=== PATIENT | female | born 1970 | race Caucasian/White ===

== ENCOUNTER 2017-06-04 20:29 | Emergency (ER) | payer OTHER ==
[~2017-06-04] VITALS: Ht 167.6 cm; Wt 62.6 kg
[~2017-06-04 20:29] MED LIST: FAMO-63 PO
--- NOTE | 2017-06-04 21:49 | ED.ADGEN ---
Past History Past Medical History: Anxiety, Cancer, GERD, Hypertension, Other Additional Past Medical Histor: duodenal ulcer, H.Pylori Past Surgical History: Cancer Surgery, Alcohol Use: Occasionally Drug Use: None Adult General HPI HPI Patient is a 46 yo female with abscess x 2 days on right shoulder. no hx of MRSA. thinks it's a spider bite. no fever. no n/v/d Review of Systems Review of Systems Constitutional: Denies fever or chills [] Eyes: Denies change in visual acuity, redness, or eye pain [] HENT: Denies nasal congestion or sore throat [] Respiratory: Denies cough or shortness of breath [] Cardiovascular: No additional information not addressed in HPI [] GI: Denies abdominal pain, nausea, vomiting, bloody stools or diarrhea [] : Denies dysuria or hematuria [] Musculoskeletal: Denies back pain or joint pain [] Integument: lesion on right posterior shoulder Neurologic: Denies headache, focal weakness or sensory changes [] Endocrine: Denies polyuria or polydipsia [] All other systems were reviewed and found to be within normal limits, except as documented in this note. Allergies Allergies Allergies Coded Allergies Type Severity Reaction Last Updated Verified ampicillin Allergy Intermediate 10/30/15 Yes ciprofloxacin Allergy Intermediate gi 10/30/15 Yes metronidazole Allergy Intermediate breathing 10/30/15 Yes Penicillins Allergy Unknown breathing 10/30/15 Yes Physical Exam Physical Exam Constitutional: Well developed, well nourished, no acute distress, non-toxic appearance. [] HENT: Normocephalic, atraumatic, bilateral external ears normal, oropharynx moist, no oral exudates, nose normal. [] Eyes: PERRLA, EOMI, conjunctiva normal, no discharge. [] Neck: Normal range of motion, no tenderness, supple, no stridor. [] Cardiovascular:Heart rate regular rhythm, no murmur [] Lungs & Thorax: Bilateral breath sounds clear to auscultation [] Abdomen: Bowel sounds normal, soft, no tenderness, no masses, no pulsatile masses. [] Skin:2x2 inch erythematous area on posterior right shoulder. no drainage. 1mm black/yellow area on top. no fluctuant area. tender firm area in center is 1cm. Back: No tenderness, no CVA tenderness. [] Extremities: No tenderness, no cyanosis, no clubbing, ROM intact, no edema. [] Neurologic: Alert and oriented X 3, normal motor function, normal sensory function, no focal deficits noted. [] Psychologic: Affect normal, judgement normal, mood normal. [] Current Patient Data Vital Signs Vital Signs Date Time Temp Pulse Resp B/P (MAP) Pulse Ox O2 Delivery O2 Flow Rate FiO2 06/04/17 21:00 98.1 87 16 98 Room Air EKG EKG [] Radiology/Procedures Radiology/Procedures [] Course & Med Decision Making Course & Med Decision Making Pertinent Labs and Imaging studies reviewed. (See chart for details) pt wishes to do warm compresses and antibiotics. she will return if not improving for re-evaluation and potential I&D [] Final Impression Final Impression abscess[] Problems: Dragon Disclaimer Dragon Disclaimer This electronic medical record was generated, in whole or in part, using a voice recognition dictation system. Departure Time of Disposition: 21:50 Disposition: 01 HOME, SELF-CARE Condition: STABLE Patient Instructions: Abscess Additional Instructions: bactrim and keflex for infection. try do do warm compresses 4 times-a-day to express pus. do not try and open with pins, fingernails, or any sharp object. return if increase in size, pain, fever, or any other concerns Prescriptions bactrim, keflex, NEEMA DOMINGO MD Jun 04, 2017 21:49
[2017-06-04] MEDS ORDERED: CEPH-264 PO (21:52)
[2017-06-04] MEDS ORDERED: SULF1TAB24 PO (21:52)
[2017-06-04 21:55] VITALS: BP 156/86
== END 2017-06-04 21:59 | disposition home or self-care (01) ==
LOC: ER 20:29
DX: L02.413 Cutaneous abscess of right upper limb (principal); F41.9 Anxiety disorder, unspecified; K21.9 Gastro-esophageal reflux disease without esophagitis; I10 Essential (primary) hypertension; Z88.1 Allergy status to other antibiotic agents; Z88.0 Allergy status to penicillin; Z88.8 Allergy status to other drugs, medicaments and biological substances
CPT/HCPCS: 99283

== ENCOUNTER 2019-03-27 21:28 | Emergency (ER) | payer SELFPAY ==
[~2019-03-27] VITALS: Ht 167.6 cm; Wt 74.0 kg
[~2019-03-27 21:28] MED LIST changes: +CEPH-264 PO; +SULF1TAB24 PO
--- NOTE | 2019-03-27 21:38 | PHYS DOC ---
Past History Past Medical History: Anxiety, Cancer, Constipation, Depression, GERD, High Cholesterol, Hypertension, Other Additional Past Medical Histor: duodenal ulcer, H.Pylori Past Medical History PTSD Past Surgical History: Cancer Surgery, Smoking: Cigarettes Alcohol Use: Occasionally Drug Use: Marijuana, Methamphetamine Adult General Chief Complaint Chief Complaint: ABDOMINAL PAIN..." I have multiple worries.. and complaints.. I am worried I may be having a heart attack... and I got this bad abdomen pain.. here on the Lt. ...that been going on the past 2 to 3 weeks.. I went to [facility] 2 weeks ago.. they sent me to [facility].. and worked me up foa a stroke.. when my mouth swelled up from Lisionopril....but they did not do any for my chest pain or abdomen pain..." HPI HPI Patient is a 48 year old female who presents with above hx and complaints of abdomen pain, chest pain, and generalized malaise. Patient symptoms have been going on 2-3 weeks. Patient normally follows with Dr Rafita Luong. at [facility]. Patient does smoke tobacco, and occasional marijuana.. Patient does have a history of hypertension And elevated cholesterol. There is a family history of cardiac disease but presentation usually starts after age 50. Patient was admitted to [facility] for approximately 3 days for a workup-CVA with an MRI and carotid Dopplers. No significant surgical lesion found. Per patient. Patient did have angioedema with the use of lisinopril which started the CVA workup at [facility]. She denies any travel. Patient denies any history immunosuppression. Patient has had history of GERD., PTSD, anxiety disorder, endometriosis, and anxiety disorder. Patient denies any specific ill contacts. Patient did not get a flu vaccination this season. Patient has had history of multiple EGDs and previous diagnosis of H. pylori which required multiple episodes of antibiotic treatment before clearing. Patient denies any trauma. Patient is very anxious. No history of colon scopic evaluations. Denies history of renal colic or renal stones. Patient has had very poor intake the last several days. Reportedly has not been able to tolerate food. Because of nausea. Patient states she's gained weight from 148 lbs to 172 pounds in the past month. Review of Systems Review of Systems Constitutional: Denies fever or chills [] Eyes: Denies change in visual acuity, redness, or eye pain [] HENT: Denies nasal congestion or sore throat [] Respiratory: Denies cough or shortness of breath [] Cardiovascular: No additional information not addressed in HPI [] GI: Complaints of epigastric and left flank abdominal pain, nausea, vomiting,. Denies bloody stools or diarrhea [] : Denies dysuria or hematuria [] Musculoskeletal: Complains of left flank back pain. Denies joint pain [] Integument: Denies rash or skin lesions [] Neurologic: Denies headache, focal weakness or sensory changes [] Endocrine: Denies polyuria or polydipsia [] All other systems were reviewed and found to be within normal limits, except as documented in this note. Family History Family History Hypertension and cardiac issues late in 60s Current Medications Current Medications See nursing for home meds Allergies Allergies Allergies Coded Allergies Type Severity Reaction Last Updated Verified ampicillin Allergy Intermediate 10/30/15 Yes ciprofloxacin Allergy Intermediate gi 10/30/15 Yes metronidazole Allergy Intermediate breathing 10/30/15 Yes Penicillins Allergy Unknown breathing 10/30/15 Yes Physical Exam Physical Exam Constitutional: Moderate distress, non-toxic appearance. [] HENT: Normocephalic, atraumatic, bilateral external ears normal, oropharynx moist, no oral exudates, nose normal. [] Eyes: PERRLA, EOMI, conjunctiva normal, no discharge. [] Neck: Normal range of motion, no tenderness, supple, no stridor. [] Cardiovascular:Heart rate regular rhythm, no murmur [] Lungs & Thorax: Bilateral breath sounds equal apex with scattered wheezes throughout on auscultation [] Abdomen: Bowel sounds normal, soft, left abdomen and flank tenderness, no masses, no pulsatile masses. [Distended. Tympanic. Old surgical scars. Skin: Warm, dry, no erythema, no rash. [] Back: No tenderness, mild left CVA tenderness. On percussion Extremities: No tenderness, no cyanosis, no clubbing, ROM intact, no edema. [] No psoas sign. No cording appreciated. Neurologic: Alert and oriented X 3, normal motor function, normal sensory function, no focal deficits noted. [] Psychologic: Affect extremely anxious, judgement normal, mood normal. [] EKG EKG My interpretation EKG shows a sinus rhythm at 84 bpm. There is some nonspecific contour changes in anterior lateral leads. But no findings of acute STEMI with contralateral changes.[] Radiology/Procedures Radiology/Procedures [address] [address] IMAGING REPORT Signed PATIENT: KASH MARTINEZ SACCOUNT: [id number] : 1970 LOCATION: ER AGE: 48 SEX: F EXAM STATUS: REG ER ORD. PHYSICIAN: TEE DORAN MD REASON: CP, elev. d-dimer, abdomen pain, h/o cervical cancer PROCEDURE: CT ANGIO CHEST W ABD PEL W/ CTA Chest and CT abdomen pelvis with contrast: Clinical History: Chest pain and abdominal pain and elevated d-dimer . Axial helical images of the chest were obtained after the administration of 90 cc of IV Omni 350 contrast. Oral contrast was utilized as well. CTA chest with contrast: Images the chest were timed appropriately for a pulmonary arterial study. Conventional axial reconstruction was performed in addition to coronal, sagittal and bilateral oblique MIP (maximum intensity projection). This study was ordered to detect possible pulmonary embolism. There are no filling defects to suggest pulmonary embolism. The lungs and pleural margins are clear. There is no mediastinal or hilar lymphadenopathy. The thoracic aorta appears normal. Impression: 1. No evidence of pulmonary embolism. 2. No significant findings. End impression CT SCAN OF THE ABDOMEN AND PELVIS WITH IV CONTRAST. Liver: Unremarkable Spleen: Unremarkable Pancreas: Unremarkable Adrenal Glands: Unremarkable Kidneys: Small cysts bilaterally There is no mass or lymphadenopathy. There is no free air. There is no free fluid. The urinary bladder appears normal. The appendix is normal. There is been prior cholecystectomy. Impression: No acute findings. PQRS Compliance Statement: One or more of the following individualized dose reduction techniques were utilized for this examination: 1. Automated exposure control 2. Adjustment of the mA and/or kV according to patient size 3. Use of iterative reconstruction technique Electronically signed by: Sujit Serrano III, MD (03/28/2019 2:51 AM) [id number] DICTATED AND SIGNED BY: SUJIT SERRANO III, MD DATE: 03/28/19 0251 CC: TEE DORAN MD; BRIANNE JAY ~ [address] [address] IMAGING REPORT Signed PATIENT: KASH MARTINEZ: [id number] : 1970 LOCATION: ER AGE: 48 SEX: F EXAM STATUS: REG ER ORD. PHYSICIAN: TEE DORAN MD REASON: CP, elev. d-dimer, abdomen pain, h/o cervical cancer PROCEDURE: CT ANGIO CHEST W ABD PEL W/ CTA Chest and CT abdomen pelvis with contrast: Clinical History: Chest pain and abdominal pain and elevated d-dimer . Axial helical images of the chest were obtained after the administration of 90 cc of IV Omni 350 contrast. Oral contrast was utilized as well. CTA chest with contrast: Images the chest were timed appropriately for a pulmonary arterial study. Conventional axial reconstruction was performed in addition to coronal, sagittal and bilateral oblique MIP (maximum intensity projection). This study was ordered to detect possible pulmonary embolism. There are no filling defects to suggest pulmonary embolism. The lungs and pleural margins are clear. There is no mediastinal or hilar lymphadenopathy. The thoracic aorta appears normal. Impression: 1. No evidence of pulmonary embolism. 2. No significant findings. End impression CT SCAN OF THE ABDOMEN AND PELVIS WITH IV CONTRAST. Liver: Unremarkable Spleen: Unremarkable Pancreas: Unremarkable Adrenal Glands: Unremarkable Kidneys: Small cysts bilaterally There is no mass or lymphadenopathy. There is no free air. There is no free fluid. The urinary bladder appears normal. The appendix is normal. There is been prior cholecystectomy. Impression: No acute findings. PQRS Compliance Statement: One or more of the following individualized dose reduction techniques were utilized for this examination: 1. Automated exposure control 2. Adjustment of the mA and/or kV according to patient size 3. Use of iterative reconstruction technique Electronically signed by: Sujit Serrano III, MD (03/28/2019 2:51 AM) [id number] DICTATED AND SIGNED BY: SUJIT SERRANO III, MD DATE: 03/28/19 025 CC: TEE DORAN MD; BRIANNE JAY ~ [][address] [address] IMAGING REPORT Signed PATIENT: KASH MARTINEZOUNT: [id number] : 1970 LOCATION: ER AGE: 48 SEX: F EXAM STATUS: REG ER ORD. PHYSICIAN: TEE DORAN MD REASON: pain PROCEDURE: ABDOMEN SUPINE & UPRIGHT CHEST PA LATERAL, ABDOMEN SUPINE UPRIGHT Two-view chest: Technique: PA and lateral views of the chest were obtained. Clinical History: Pain Comparison: None. Findings: The heart and pulmonary vasculature appear within normal limits. The lungs are clear. The pleural margins are clear. Impression: No acute chest process is seen. End impression 2 view abdomen pelvis Upright supine AP view abdomen pelvis There is air and stool scattered throughout the colon. There is a paucity small bowel gas. There is no free air. There has been prior cholecystectomy. IMPRESSION: Constipation. Electronically signed by: Sujit Serrano III, MD (03/28/2019 12:04 AM) [id number] DICTATED AND SIGNED BY: SUJIT SERRANO III, MD DATE: 03/28/19 0004 CC: TEE DORAN MD; BRIANNE JAY ~ Course & Med Decision Making Course & Med Decision Making Pertinent Labs and Imaging studies reviewed. (See chart for details) Follow-up primary care. Patient seen on a clear fluid diet next 48 hours. No solids or milk products. Must allow bowel rest. Take Tylenol and ibuprofen for pain. Consider follow-up EGD D and colonoscopy. Re-exam if no improvement. Stop smoking. Avoid illicit drugs. Consider outpatient stress testing. The patient is to expect some cramping and diarrhea with passage of stool burden. Impression: 1. Chest pain- Lt lower chest wall 2. Abdomen pain- Lt upper abd. 3. Tobacco use 4. Marijuana use 5. History of hypertension 6. History of PTSD 7. History of anxiety disorder 8. History of GERD and H. pylori 9. Constipation 10.Elevated D-dimer 0.66 [] [place] Disclaimer Dragon Disclaimer This electronic medical record was generated, in whole or in part, using a voice recognition dictation system. Departure Departure: Disposition: HOME/RESIDENCE PRIOR TO ADM Condition: STABLE Referrals: BRIANNE JAY (PCP) Nathaly Disclaimer This chart was dictated in whole or in part using Voice Recognition software in a busy, high-work load, and often noisy Emergency Department environment. It may contain unintended and wholly unrecognized errors or omissions. TEE DORAN MD Mar 27, 2019 21:38
[2019-03-27 22:55] LABS: BARBITURATES NEG (NEG); BENZODIAZEPINES NEG (NEG); CANNABINOIDS POS (NEG); COCAINE NEG (NEG); METHADONE NEG (NEG); OPIATES NEG (NEG); PHENCYCLIDINE NEG (NEG)
[2019-03-27 22:58] LABS: BACTERIA,URINE 0 /HPF (0-FEW); BILIRUBIN,URINE NEG (NEG); CLARITY,URINE CLEAR; COLOR,URINE YELLOW; GLUCOSE,URINE NEG (NEG); NITRITE,URINE NEG (NEG); RBC,URINE 0 /HPF (0-2); SQUAMOUS EPITHELIAL CELL,UR OCC /LPF; UROBILINOGEN,URINE 0.2 mg/dL (0.2 mg/dL); WBC,URINE OCC /HPF (0-4)
[2019-03-27 23:01] LABS: AMPHETAMINE/METHAMPHETAMINE POS (NEG)
[2019-03-27] MEDS ORDERED: KETOROLAC 30 MG/ML VIAL. IVP ONE (23:45)
[2019-03-27] MEDS ORDERED: ASPIRIN 81 MG TAB.CHEW PO ONE (23:45)
[2019-03-27] MEDS ORDERED: MAGNESIUM HYDROXIDE 2,400 MG/30 ML ORAL.SUSP. PO ONE (23:45)
[2019-03-27] MEDS ORDERED: FAMOTIDINE 20 MG/2 ML VIAL IVP ONE (23:45)
[2019-03-27] MEDS ORDERED: IV RINGERS SOLUTION,LACTATED 1,000 ML IV SCH (23:45)
[2019-03-27] MEDS ORDERED: ONDANSETRON PF 4 MG/2 ML VIAL. IVP ONE (23:45)
--- NOTE | 2019-03-28 00:07 | RAD ---
CHEST PA LATERAL, ABDOMEN SUPINE UPRIGHT Two-view chest: Technique: PA and lateral views of the chest were obtained. Clinical History: Pain Comparison: None. Findings: The heart and pulmonary vasculature appear within normal limits. The lungs are clear. The pleural margins are clear. Impression: No acute chest process is seen. End impression 2 view abdomen pelvis Upright supine AP view abdomen pelvis There is air and stool scattered throughout the colon. There is a paucity small bowel gas. There is no free air. There has been prior cholecystectomy. IMPRESSION: Constipation. Electronically signed by: Rashawn Hussein III, MD (03/28/2019 12:04 AM) [id number]
[2019-03-28 00:33] LABS: BASO # 0.1 x10^3/uL (0.0-0.2); BASO % 1 % (0-3); EOS # 0.2 x10^3/uL (0.0-0.7); EOS % 2 % (0-3); HEMATOCRIT 40.1 % (36.0-47.0); HEMOGLOBIN 13.2 g/dL (12.0-15.5); LYMPH # 2.7 x10^3/uL (1.0-4.8); LYMPH % 25 % (24-48); MEAN CORPUSCULAR HEMOGLOBIN 32 pg (25-35); MEAN CORPUSCULAR HGB CONC 33 g/dL (31-37); MEAN CORPUSCULAR VOLUME 98 fL (79-100); MONO # 0.8 x10^3/uL (0.0-1.1); MONO % 7 % (0-9); NEUT # 7.1 x10^3uL (1.8-7.7); NEUT % 65 % (31-73); PLATELET COUNT 277 x10^3/uL (140-400); RED BLOOD COUNT 4.11 x10^6/uL (3.50-5.40); RED CELL DISTRIBUTION WIDTH 13.3 % (11.5-14.5); WHITE BLOOD COUNT 10.9 x10^3/uL (4.0-11.0)
[2019-03-28 00:41] LABS: CREATININE 0.9 mg/dL (0.6-1.0); GFR 66.5; POTASSIUM 3.9 mmol/L (3.5-5.1)
[2019-03-28] MEDS ORDERED: MAGNESIUM HYDROXIDE 2,400 MG/30 ML ORAL.SUSP. PO ONE (00:45)
[2019-03-28 00:53] LABS: ALBUMIN 3.7 g/dL (3.4-5.0); DIRECT BILIRUBIN 0.1 mg/dL (0.0-0.2); TOTAL BILIRUBIN 0.3 mg/dL (0.2-1.0); TOTAL PROTEIN 7.3 g/dL (6.4-8.2)
[2019-03-28] MEDS ORDERED: CONTRAST GIVEN MC PRN (01:30)
[2019-03-28] MEDS ORDERED: IOHEXOL 350 MG/ML 100 ML VIAL. IV ONE (01:30)
[2019-03-28] MEDS ORDERED: ENOXAPARIN ** NOTE DOSE ** SYRINGE SQ ONE (01:30)
[2019-03-28] MEDS ORDERED: IOHEXOL 240 MG/ML 50ML VIAL. PO ONE (01:30)
--- NOTE | 2019-03-28 02:53 | RAD ---
CTA Chest and CT abdomen pelvis with contrast: Clinical History: Chest pain and abdominal pain and elevated d-dimer . Axial helical images of the chest were obtained after the administration of 90 cc of IV Omni 350 contrast. Oral contrast was utilized as well. CTA chest with contrast: Images the chest were timed appropriately for a pulmonary arterial study. Conventional axial reconstruction was performed in addition to coronal, sagittal and bilateral oblique MIP (maximum intensity projection). This study was ordered to detect possible pulmonary embolism. There are no filling defects to suggest pulmonary embolism. The lungs and pleural margins are clear. There is no mediastinal or hilar lymphadenopathy. The thoracic aorta appears normal. Impression: 1. No evidence of pulmonary embolism. 2. No significant findings. End impression CT SCAN OF THE ABDOMEN AND PELVIS WITH IV CONTRAST. Liver: Unremarkable Spleen: Unremarkable Pancreas: Unremarkable Adrenal Glands: Unremarkable Kidneys: Small cysts bilaterally There is no mass or lymphadenopathy. There is no free air. There is no free fluid. The urinary bladder appears normal. The appendix is normal. There is been prior cholecystectomy. Impression: No acute findings. PQRS Compliance Statement: One or more of the following individualized dose reduction techniques were utilized for this examination: 1. Automated exposure control 2. Adjustment of the mA and/or kV according to patient size 3. Use of iterative reconstruction technique Electronically signed by: Rashawn Hussein III, MD (03/28/2019 2:51 AM) [id number]
[2019-03-28] MEDS ORDERED: MAGNESIUM CITRATE 296 ML SOLUTION. PO ONE (03:30)
[2019-03-28 03:43] VITALS: BP 135/79
--- NOTE | 2019-03-28 06:38 | EKG ---
[address] [address] Test Date: 2019-03-27 Test Time: 23:38:38 Pat Name: KASH MARTINEZ Department: Room: Gender: F Finish Filer: : 1970 Requested By: TEE DORAN Order Number: [id number] Reading MD: Measurements Intervals [place] Rate: 84 P: 32 OK: 118 QRS: 57 QRSD: 82 T: 57 QT: 366 QTc: 436 Interpretive Statements SINUS RHYTHM QRS(T) CONTOUR ABNORMALITY CONSIDER ANTEROLATERAL MYOCARDIAL DAMAGE POSSIBLY ABNORMAL ECG RI6.01 No previous ECG available for comparison
== END 2019-03-28 03:50 | disposition home or self-care (01) ==
LOC: ER 21:28
DX: K59.00 Constipation, unspecified (principal); R10.12 Left upper quadrant pain; R07.89 Other chest pain; R11.2 Nausea with vomiting, unspecified; F12.90 Cannabis use, unspecified, uncomplicated; F17.210 Nicotine dependence, cigarettes, uncomplicated; I10 Essential (primary) hypertension; F43.12 Post-traumatic stress disorder, chronic; F32.9 Major depressive disorder, single episode, unspecified; E78.00 Pure hypercholesterolemia, unspecified; F41.9 Anxiety disorder, unspecified; K21.9 Gastro-esophageal reflux disease without esophagitis; Z88.0 Allergy status to penicillin; Z88.1 Allergy status to other antibiotic agents; Z98.890 Other specified postprocedural states; F15.90 Other stimulant use, unspecified, uncomplicated; Z85.9 Personal history of malignant neoplasm, unspecified
CPT/HCPCS: 36415; 71046; 74019; 80048; 80076; 80307; 81001; 81025; 82550; 83690; 83735; 83880; 84443; 84484; 85025; 85379; 85610; 85730; 93005; 96361; 96372; 96374; 96375; 99285-25

== ENCOUNTER 2019-05-12 20:38 | Emergency (ER) | payer SELFPAY ==
[~2019-05-12] VITALS: Ht 167.6 cm; Wt 74.0 kg
[2019-05-12 20:40] VITALS: BP 157/68
--- NOTE | 2019-05-12 20:42 | PHYS DOC ---
Past History Past Medical History: Anxiety, Cancer, Constipation, Depression, GERD, High Cholesterol, Hypertension, Other Additional Past Medical Histor: duodenal ulcer, H.Pylori, cervical cancer,abdo norma cancer Past Surgical History: Cancer Surgery, , Tubal ligation Smoking: Cigarettes Alcohol Use: Occasionally Drug Use: Marijuana, Methamphetamine Adult General Chief Complaint Chief Complaint: MECHANICAL FALL.. " My son a apartment has plumbing problems and his floor was wet... I kind of stepped wrong and slipped and shelia fell .. straining this Rt. leg.. I had injuried it years ago.. I really pulled some muscles.. or maybe broke something.. It still hurts towalk on it... " HPI HPI Patient is a 48 year old female who presents with above hx and complaints of fall. Patient complains of injury to right femur and hip area she neurovascular intact. Capillary refill is equal to left leg. Patient is ambulat ory with discomfort. Straight leg lift and squatting exacerbates her pain and right leg and hip. She will injury was approximately 1500 hrs. today. Patient states still has discomfort on walking. Patient states she has had previous injury to right leg years ago. Patient denies any history of ill osteoporosis . No recent travel outside [facility]. No history immunosuppression. No lower back pain. No problems defecation or urination. Follows with Dr. Dillon Luong Review of Systems Review of Systems Constitutional: Denies fever or chills [] Eyes: Denies change in visual acuity, redness, or eye pain [] HENT: Denies nasal congestion or sore throat [] Respiratory: Denies cough or shortness of breath [] Cardiovascular: No additional information not addressed in HPI [] GI: Denies abdominal pain, nausea, vomiting, bloody stools or diarrhea [] : Denies dysuria or hematuria [] Musculoskeletal: Complaints of right leg and hip pain Integument: Denies rash or skin lesions [] Neurologic: Denies headache, focal weakness or sensory changes [] Endocrine: Denies polyuria or polydipsia [] All other systems were reviewed and found to be within normal limits, except as documented in this note. Family History Family History Noncontributory to presentation Current Medications Current Medications See nursing for home meds Allergies Allergies Allergies Coded Allergies Type Severity Reaction Last Updated Verified Penicillins Allergy Severe breathing 03/27/19 Yes ampicillin Allergy Intermediate 10/30/15 Yes ciprofloxacin Allergy Intermediate gi 10/30/15 Yes lisinopril Allergy Intermediate 03/27/19 Yes metronidazole Allergy Intermediate breathing 10/30/15 Yes Physical Exam Physical Exam Constitutional: Moderate acute distress, non-toxic appearance. [] HENT: Normocephalic, atraumatic, bilateral external ears normal, oropharynx moist, no oral exudates, nose normal. [] Eyes: PERRLA, EOMI, conjunctiva normal, no discharge. [] Neck: Normal range of motion, no tenderness, supple, no stridor. [] Cardiovascular:Heart rate regular rhythm, no murmur [] Lungs & Thorax: Bilateral breath sounds equal at at apex auscultation [] Abdomen: Bowel sounds normal, soft, no tenderness, no masses, no pulsatile masses. Old surgery scars Skin: Warm, dry, no erythema, no rash. [] Back: No tenderness, no CVA tenderness. [] Extremities: No tenderness, no cyanosis, no clubbing, ROM intact, no edema. [] Right hip and leg tenderness. As per history of present illness Neurologic: Alert and oriented X 3, normal motor function, normal sensory function, no focal deficits noted. [] Psychologic: Affect anxious, judgement normal, mood normal. [] EKG EKG [] Radiology/Procedures Radiology/Procedures [][place] [address] IMAGING REPORT Signed PATIENT: KASH MARTINEZ SACCOUNT: [id number] : 1970 LOCATION: ER AGE: 48 SEX: F EXAM STATUS: REG ER ORD. PHYSICIAN: TEE DORAN MD REASON: Fall, prior injury to Rt femur and pelvis- yrs ago fx PROCEDURE: HIP RIGHT 2V WITH PELVIS Exam: Pelvis with right hip 2 views INDICATION: Fall, prior injury to right femur and pelvis TECHNIQUE: Frontal view of the pelvis with frontal and frog-leg lateral views the right hip Comparisons: None FINDINGS: Bone mineralization is normal. No acute or healed fractures. Soft tissues are unremarkable. Joint spaces are well-maintained. IMPRESSION: No acute osseous abnormality. Electronically signed by: Jones Dowd MD (05/12/2019 9:59 PM) [id number] DICTATED AND SIGNED BY: JONES DOWD MD DATE: 05/12/192158 CC: TEE DORAN MD; BRIANNE JAY ~ Course & Med Decision Making Course & Med Decision Making Pertinent Labs and Imaging studies reviewed. (See chart for details) Patient to use ice packs as needed. Restless leg. Take Tylenol and ibuprofen as needed for pain. For marked pain may take Percocet up to 4 times a day. Follow- up primary care. If no improvement of leg discomfort may need CT of hip or MRI to evaluate for Further injury or fracture that is not visible on current x-rays . Follow-up with primary care. Return if any concerns. Patient to quit smoking. Patient get bone density study. Impression: 1. Muscle sprain strain-right hip and groin muscle groups. [] Dragon Disclaimer Dragon Disclaimer This electronic medical record was generated, in whole or in part, using a voice recognition dictation system. Departure Departure: Disposition: 01 HOME/RESIDENCE PRIOR TO ADM Condition: STABLE Referrals: BRIANNE JAY (PCP) Scripts Oxycodone HCl/Acetaminophen (Percocet 5-325 mg Tablet) 1 Each Tablet 1 TAB PO PRN QID PRN for PAIN MDD 4 Tablet(s), #30 % 0 Refills Prov: TEE DORAN MD 05/12/19 Hydrocodone/Ibuprofen (HYDROCODONE-IBUPROFEN 7.5-200 ) 1 Each Tablet 1 TAB PO PRN Q6HRS PRN for PAIN, #30 TAB 0 Refills Prov: TEE DORAN MD 05/12/19 Dragon Disclaimer This chart was dictated in whole or in part using Voice Recognition software in a busy, high-work load, and often noisy Emergency Department environment. It may contain unintended and wholly unrecognized errors or omissions. TEE DORAN MD May 12, 2019 20:42
[2019-05-12] MEDS ORDERED: HYDR-1179 PO (21:38)
[2019-05-12] MEDS ORDERED: KETOROLAC 60 MG/2 ML VIAL. IM ONE (21:45)
[2019-05-12] MEDS ORDERED: ACETAMINOPHEN 500 MG TABLET PO ONE (21:45)
--- NOTE | 2019-05-12 22:01 | RAD ---
Exam: Pelvis with right hip 2 views INDICATION: Fall, prior injury to right femur and pelvis TECHNIQUE: Frontal view of the pelvis with frontal and frog-leg lateral views the right hip Comparisons: None FINDINGS: Bone mineralization is normal. No acute or healed fractures. Soft tissues are unremarkable. Joint spaces are well-maintained. IMPRESSION: No acute osseous abnormality. Electronically signed by: Jones Benavides MD (05/12/2019 9:59 PM) [id number]
[2019-05-12] MEDS ORDERED: OXYC-325 PO (22:39)
== END 2019-05-12 22:25 | disposition home or self-care (01) ==
LOC: ER 20:38
DX: S73.191A Other sprain of right hip, initial encounter (principal); K21.9 Gastro-esophageal reflux disease without esophagitis; E78.00 Pure hypercholesterolemia, unspecified; I10 Essential (primary) hypertension; F17.210 Nicotine dependence, cigarettes, uncomplicated; Z88.0 Allergy status to penicillin; Z88.1 Allergy status to other antibiotic agents; Z88.8 Allergy status to other drugs, medicaments and biological substances; W01.0XXA Fall on same level from slipping, tripping and stumbling without subsequent striking against object, initial encounter; Y93.89 Activity, other specified; Y92.89 Other specified places as the place of occurrence of the external cause; Y99.8 Other external cause status
CPT/HCPCS: 73502; 96372; 99283; J1885

== ENCOUNTER 2019-05-16 21:00 | Emergency (ER) | payer SELFPAY ==
[~2019-05-16] VITALS: Ht 167.6 cm; Wt 68.0 kg
[2019-05-16 21:00] VITALS: BP 151/89
[~2019-05-16 21:00] MED LIST changes: +HYDR-1179 PO; +OXYC-325 PO
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
[2019-05-16] MEDS ORDERED: TETANUS AND DIPHTHERIA TOX/PF 0.5 ML VIAL. VAX IM ONE (21:30)
[2019-05-16] MEDS ORDERED: BACITRACIN ZINC TOPICAL OINT PACKET. TP ONE (21:30)
[2019-05-16] MEDS ORDERED: ACETAMINOPHEN 500 MG TABLET PO ONE (21:45)
== END 2019-05-16 22:33 | disposition home or self-care (01) ==
LOC: EEVIPCON 21:00 → ER 21:00
DX: S41.111A Laceration without foreign body of right upper arm, initial encounter (principal); K21.9 Gastro-esophageal reflux disease without esophagitis; E78.00 Pure hypercholesterolemia, unspecified; I10 Essential (primary) hypertension; F17.210 Nicotine dependence, cigarettes, uncomplicated; Z88.0 Allergy status to penicillin; Z88.1 Allergy status to other antibiotic agents; Z88.8 Allergy status to other drugs, medicaments and biological substances; W26.8XXA Contact with other sharp object(s), not elsewhere classified, initial encounter; Y93.89 Activity, other specified; Y92.89 Other specified places as the place of occurrence of the external cause; Y99.8 Other external cause status
CPT/HCPCS: 12001; 90471; 90714; 99283

== ENCOUNTER 2019-05-20 14:07 | Emergency (ER) | payer SELFPAY ==
[~2019-05-20] VITALS: Ht 167.6 cm; Wt 73.7 kg
[2019-05-20] MEDS: ONDANSETRON ODT 4 MG TAB.RAPDIS PO ONE (14:30)
[2019-05-20] MEDS: IV NORMAL SALINE 1,000ML 1,000 ML IV ONE (14:45)
[2019-05-20 14:59] LABS: INFLUENZA A PATIENT NEGATIVE (NEGATIVE); INFLUENZA B PATIENT NEGATIVE (NEGATIVE)
--- NOTE | 2019-05-20 15:06 | PHYS DOC ---
Past History Past Medical History: Anxiety, Asthma, Cancer, Constipation, COPD, Depression, GERD, High Cholesterol, Hypertension, Other Additional Past Medical Histor: duodenal ulcer, H.Pylori, cervical cancer,abdominal cancer Past Surgical History: Cancer Surgery, , Tubal ligation Smoking: Cigarettes Alcohol Use: None Drug Use: Marijuana, Methamphetamine Adult General Chief Complaint Chief Complaint: SHORTNESS OF BREATH HPI HPI 48-year-old female presents with cough, fever, vomiting. The patient has been feeling ill for almost a week. She has had in her mid and vomiting for about 5 days. She has diffuse body aches. Today she is had difficulty keeping down liquids or solids. Patient developed a fever 2 days ago up to 102. It has been amenable to Tylenol. She also has a productive cough of yellowish sputum. The patient is a smoker. She has not been traveling. She mostly stays at home. She has been into healthcare facilities in the last 2 weeks. Once as a patient for a fall and had another facility as a family member for a surgical patient. She has not had any contact with a known or suspected COVID 19 patient. The patient did not have a fever on arrival, however she did take her last Tylenol dose about an hour before coming to the emergency room. Review of Systems Review of Systems Constitutional: Fever[] Eyes: Denies change in visual acuity, redness, or eye pain [] HENT: Denies nasal congestion or sore throat [] Respiratory: Cough with shortness of breath [] Cardiovascular: No additional information not addressed in HPI [] GI: Denies abdominal pain, nausea, vomiting, bloody stools or diarrhea [] : Denies dysuria or hematuria [] Musculoskeletal: Denies back pain or joint pain [] Integument: Denies rash or skin lesions [] Neurologic: Denies headache, focal weakness or sensory changes [] Endocrine: Denies polyuria or polydipsia [] All other systems were reviewed and found to be within normal limits, except as documented in this note. Current Medications Current Medications Current Medications Medications (Trade) Dose Ordered Sig/Alnea Start Time Stop Time Status Last Admin Dose Admin Ondansetron HCl (Zofran Odt) 4 mg 1X ONCE 05/20/19 14:30 05/20/19 14:33 DC Sodium Chloride 1,000 ml @ 1,000 mls/hr 1X ONCE 05/20/19 14:45 05/20/19 15:44 Allergies Allergies Allergies Coded Allergies Type Severity Reaction Last Updated Verified Penicillins Allergy Severe breathing 03/27/19 Yes ampicillin Allergy Intermediate 10/30/15 Yes ciprofloxacin Allergy Intermediate gi 10/30/15 Yes lisinopril Allergy Intermediate 03/27/19 Yes metronidazole Allergy Intermediate breathing 10/30/15 Yes Physical Exam Physical Exam Constitutional: Well developed, well nourished, mild acute distress, non-toxic appearance. [] HENT: Normocephalic, atraumatic, bilateral external ears normal, oropharynx moist, no oral exudates, nose normal. [] Eyes: PERRLA, EOMI, conjunctiva normal, no discharge. [] Neck: Normal range of motion, no tenderness, supple, no stridor. [] Cardiovascular: Heart rate 102, regular rhythm, no murmur [] Lungs & Thorax: Bilateral breath sounds clear to auscultation [] Abdomen: Bowel sounds normal, soft, no tenderness, no masses, no pulsatile masses. [] Skin: Warm, dry, no erythema, no rash. [] Back: No tenderness, no CVA tenderness. [] Extremities: No tenderness, no cyanosis, no clubbing, ROM intact, no edema. [] Neurologic: Alert and oriented X 3, normal motor function, normal sensory function, no focal deficits noted. [] Psychologic: Affect normal, judgement normal, mood normal. [] Current Patient Data Vital Signs Vital Signs Date Time Temp Pulse Resp B/P (MAP) Pulse Ox O2 Delivery O2 Flow Rate FiO2 05/20/19 14:08 97.9 102 20 127/88 (101) 100 Room Air Lab Results Laboratory Tests Test 05/20/19 14:17 Group A Streptococcus Rapid Negative (NEGATIVE) EKG EKG [] Radiology/Procedures Radiology/Procedures [] Impressions: CHEST AP ONLY History: Cough. Congestion. Comparison: March 27, 2019 Findings: No consolidation or pleural effusion. Normal heart size. No pneumothorax. Impression: 1. No acute cardiopulmonary process. Electronically signed by: Crow Flores DO (05/20/2019 3:16 PM) [id number] DICTATED AND SIGNED BY: CROW FLORES DO DATE: 05/20/19 1516 CC: TRAVIS HERNANDEZ DO; BRIANNE JAY ~ Course & Med Decision Making Course & Med Decision Making Pertinent Labs and Imaging studies reviewed. (See chart for details) Patient has a white count of 16. Her chest x-rays negative for pneumonia. Her influenza and rapid streps are negative. The patient does not have known exposure to COVID 19, but given her results and symptoms, she meets criteria for self quarantined. She does not meet criteria for mandatory testing or admission. I have advised the patient of this. If her condition worsens she will call the emergency room and possibly return to the emergency room. She is stable for discharge at this time. [] Dragon Disclaimer Dragon Disclaimer This electronic medical record was generated, in whole or in part, using a voice recognition dictation system. Departure Departure: Impression: Primary Impression: COVID-19 Disposition: 01 HOME, SELF-CARE Condition: STABLE Referrals: BRIANNE JAY (PCP) Patient Instructions: Viral Syndrome Additional Instructions: Based on your symptoms and test results, you meet criteria for quarantine for possible COVID 19. You do not currently meet criteria for testing. You should be isolated at home until you are symptom and fever free for at least 3 days. He should also stay in quarantine any member of your household has these symptoms until later symptom free for at least 3 days. Please see the CDC website for further quarantine guidance. If your condition worsens or new become more short of breath, please call the emergency room. You may need to return to the emergency room for admission. If you would like to buy a pulse oximeter for home use this is a good idea. If your oxygen saturation gets below 95, you should call the emergency room. TRAVIS HERNANDEZ DO May 20, 2019 15:05
[2019-05-20 15:20] LABS: BASO % 0 % (0-3); EOS # 0.1 x10^3/uL (0.0-0.7); EOS % 0 % (0-3); HEMATOCRIT 46.2 % (36.0-47.0); HEMOGLOBIN 14.7 g/dL (12.0-15.5); LYMPH # 2.1 x10^3/uL (1.0-4.8); LYMPH % 13 % (24-48); MEAN CORPUSCULAR HEMOGLOBIN 32 pg (25-35); MEAN CORPUSCULAR HGB CONC 32 g/dL (31-37); MEAN CORPUSCULAR VOLUME 101 fL (79-100); MONO # 2.2 x10^3/uL (0.0-1.1); MONO % 14 % (0-9); NEUT # 11.6 x10^3uL (1.8-7.7); NEUT % 72 % (31-73); PLATELET COUNT 203 x10^3/uL (140-400); RED BLOOD COUNT 4.58 x10^6/uL (3.50-5.40); RED CELL DISTRIBUTION WIDTH 13.5 % (11.5-14.5)
--- NOTE | 2019-05-20 15:20 | RAD ---
CHEST AP ONLY History: Cough. Congestion. Comparison: March 27, 2019 Findings: No consolidation or pleural effusion. Normal heart size. No pneumothorax. Impression: 1. No acute cardiopulmonary process. Electronically signed by: Crow Torres DO (05/20/2019 3:16 PM) [id number]
[2019-05-20 15:28] LABS: CALCIUM 8.9 mg/dL (8.5-10.1); GFR 58.9; POTASSIUM 3.5 mmol/L (3.5-5.1)
[2019-05-20] MEDS ORDERED: KETOROLAC 30 MG/ML VIAL. ONE (15:28)
[2019-05-20 15:33] LABS: ALBUMIN 3.2 g/dL (3.4-5.0); ALBUMIN/GLOBULIN RATIO 0.8 (1.0-1.7); TOTAL BILIRUBIN 0.3 mg/dL (0.2-1.0); TOTAL PROTEIN 7.2 g/dL (6.4-8.2)
[2019-05-20] MEDS: KETOROLAC 30 MG/ML VIAL. IVP ONE (15:45)
[2019-05-20 15:54] LABS: % BANDS 3 % (0-9); % BASOS 1 % (0-3); % LYMPHS 23 % (24-48); % MONOS 9 % (0-10); % SEGS 64 % (35-66)
[2019-05-20 16:08] VITALS: BP 125/53
[2019-05-20 16:15] LABS: PLT ESTIMATE ADEQUATE (ADEQUATE)
== END 2019-05-20 16:55 | disposition home or self-care (01) ==
LOC: ER 14:07
DX: J98.8 Other specified respiratory disorders (principal); B97.29 Other coronavirus as the cause of diseases classified elsewhere; R11.10 Vomiting, unspecified; J44.9 Chronic obstructive pulmonary disease, unspecified; K21.9 Gastro-esophageal reflux disease without esophagitis; E78.00 Pure hypercholesterolemia, unspecified; I10 Essential (primary) hypertension; F17.210 Nicotine dependence, cigarettes, uncomplicated; Z88.0 Allergy status to penicillin; Z88.1 Allergy status to other antibiotic agents; Z88.8 Allergy status to other drugs, medicaments and biological substances
CPT/HCPCS: 36415; 71045; 80053; 85007; 85025; 87070; 87804; 87880; 96361; 96374; 99284; J1885; Q0162; J7030

== ENCOUNTER 2020-08-06 18:23 | Emergency (ER) | payer SELFPAY ==
[~2020-08-06] VITALS: Ht 167.6 cm; Wt 73.7 kg
--- NOTE | 2020-08-06 20:04 | EKG ---
[address] [address] Test Date: 2020-08-06 Test Time: 19:05:56 Pat Name: KASH MARTINEZ Department: Room: Gender: F Bell Maker: : 1970 Requested By: KAREN LA Order Number: [id number] Reading MD: Measurements Intervals [place] Rate: 84 P: 34 IA: 130 QRS: 49 QRSD: 84 T: 47 QT: 372 QTc: 443 Interpretive Statements SINUS RHYTHM NORMAL ECG RI6.02 No previous ECG available for comparison
[2020-08-06 20:06] LABS: CALCIUM 8.3 mg/dL (8.5-10.1); GFR 58.7; POTASSIUM 3.5 mmol/L (3.5-5.1)
[2020-08-06 20:08] LABS: BASO % 0 % (0-3); EOS # 0.3 x10^3/uL (0.0-0.7); EOS % 3 % (0-3); HEMATOCRIT 37.2 % (36.0-47.0); HEMOGLOBIN 12.5 g/dL (12.0-15.5); LYMPH # 3.1 x10^3/uL (1.0-4.8); LYMPH % 31 % (24-48); MEAN CORPUSCULAR HEMOGLOBIN 32 pg (25-35); MEAN CORPUSCULAR HGB CONC 34 g/dL (31-37); MEAN CORPUSCULAR VOLUME 95 fL (79-100); MONO # 0.7 x10^3/uL (0.0-1.1); MONO % 7 % (0-9); NEUT # 6.1 x10^3uL (1.8-7.7); NEUT % 60 % (31-73); PLATELET COUNT 241 x10^3/uL (140-400); RED BLOOD COUNT 3.93 x10^6/uL (3.50-5.40); RED CELL DISTRIBUTION WIDTH 13.4 % (11.5-14.5); WHITE BLOOD COUNT 10.1 x10^3/uL (4.0-11.0)
[2020-08-06 20:11] LABS: ALBUMIN/GLOBULIN RATIO 0.8 (1.0-1.7); BACTERIA,URINE FEW /HPF (0-FEW); BILIRUBIN,URINE NEG (NEG); CLARITY,URINE CLEAR; COLOR,URINE YELLOW; GLUCOSE,URINE NEG (NEG); NITRITE,URINE NEG (NEG); RBC,URINE 0 /HPF (0-2); TOTAL BILIRUBIN 0.2 mg/dL (0.2-1.0); TOTAL PROTEIN 6.9 g/dL (6.4-8.2); UROBILINOGEN,URINE 0.2 mg/dL (0.2 mg/dL); WBC,URINE OCC /HPF (0-4)
[2020-08-06 20:12] LABS: SQUAMOUS EPITHELIAL CELL,UR OCC /LPF
--- NOTE | 2020-08-06 20:50 | PHYS DOC ---
Past History Past Medical History: Anxiety, Asthma, Cancer, Constipation, COPD, Depression, GERD, High Cholesterol, Hypertension, Other Additional Past Medical Histor: duodenal ulcer, H.Pylori, cervical cancer,abdominal cancer Past Surgical History: Cancer Surgery, , Tubal ligation Smoking: Cigarettes Alcohol Use: None Drug Use: Marijuana, Methamphetamine Adult General Chief Complaint Chief Complaint: LOWER EXTREMITY SWELLING HPI HPI Patient is a 49-year-old female with an extensive cardiovascular history, cancer and COPD who presents to emergency department with left lower extremity swelling. States that it started approximately 2 days ago and her left ankle and lower leg. States she has mild tenderness there when she pushes on it, 3 out of 10, dull and achy in nature. States she is never had this happen before. Denies any recent traumas, travel, illnesses, fevers, chest pain, shortness of breath, abdominal pain, nausea, vomiting. Review of Systems Review of Systems Review of systems otherwise unremarkable except noted in HPI Allergies Allergies Allergies Coded Allergies Type Severity Reaction Last Updated Verified Penicillins Allergy Severe breathing 08/06/20 Yes ampicillin Allergy Intermediate 08/06/20 Yes ciprofloxacin Allergy Intermediate gi 08/06/20 Yes lisinopril Allergy Intermediate 08/06/20 Yes metronidazole Allergy Intermediate breathing 08/06/20 Yes Physical Exam Physical Exam Constitutional: Well developed, well nourished, no acute distress, non-toxic appearance. [] HENT: Normocephalic, atraumatic, Neck: Normal range of motion, no tenderness, supple, no stridor. [] Cardiovascular:Heart rate regular rhythm, no murmur [] Lungs & Thorax: Bilateral breath sounds clear to auscultation [] Abdomen: Bowel sounds normal, soft, no tenderness, no masses, no pulsatile masses. [] Skin: Warm, dry, no erythema, no rash. [] Back: No tenderness, no CVA tenderness. [] Extremities: Left lower extremity at the ankle and about a third [address] way up the left lower extremity with some swelling and nonpitting edema. Neurovascular exam intact. Capillary refill intact. Neurologic: Alert and oriented X 3, n no focal deficits noted. [] Psychologic: Affect normal, judgement normal, mood normal. [] Current Patient Data Vital Signs Vital Signs Date Time Temp Pulse Resp B/P (MAP) Pulse Ox O2 Delivery O2 Flow Rate FiO2 08/06/20 18:57 98.6 96 16 157/84 (108) 97 Room Air Lab Results Laboratory Tests Test 08/06/20 19:20 White Blood Count 10.1 x10^3/uL (4.0-11.0) Red Blood Count 3.93 x10^6/uL (3.50-5.40) Hemoglobin 12.5 g/dL (12.0-15.5) Hematocrit 37.2 % (36.0-47.0) Mean Corpuscular Volume 95 fL (79-100) Mean Corpuscular Hemoglobin 32 pg (25-35) Mean Corpuscular Hemoglobin Concent 34 g/dL (31-37) Red Cell Distribution Width 13.4 % (11.5-14.5) Platelet Count 241 x10^3/uL (140-400) Neutrophils (%) (Auto) 60 % (31-73) Lymphocytes (%) (Auto) 31 % (24-48) Monocytes (%) (Auto) 7 % (0-9) Eosinophils (%) (Auto) 3 % (0-3) Basophils (%) (Auto) 0 % (0-3) Neutrophils # (Auto) 6.1 x10^3uL (1.8-7.7) Lymphocytes # (Auto) 3.1 x10^3/uL (1.0-4.8) Monocytes # (Auto) 0.7 x10^3/uL (0.0-1.1) Eosinophils # (Auto) 0.3 x10^3/uL (0.0-0.7) Basophils # (Auto) 0.0 x10^3/uL (0.0-0.2) D-Dimer (Maureen) 0.57 mg/L (0.00-0.50) H Urine Collection Type Unknown Urine Color Yellow Urine Clarity Clear Urine pH 5.5 Urine Specific [place] 1.020 Urine Protein Neg (NEG-TRACE) Urine Glucose (UA) Neg mg/dL (NEG) Urine Ketones (Stick) Neg mg/dL (NEG) Urine Blood Trace (NEG) Urine Nitrite Neg (NEG) Urine Bilirubin Neg (NEG) Urine Urobilinogen Dipstick 0.2 mg/dL (0.2 mg/dL) Urine Leukocyte Esterase Trace (NEG) Urine RBC 0 /HPF (0-2) Urine WBC Occ /HPF (0-4) Urine Squamous Epithelial Cells Occ /LPF Urine Bacteria Few /HPF (0-FEW) Sodium Level 140 mmol/L (136-145) Potassium Level 3.5 mmol/L (3.5-5.1) Chloride Level 103 mmol/L (98-107) Carbon Dioxide Level 27 mmol/L (21-32) Anion Gap 10 (6-14) Blood Urea Nitrogen 13 mg/dL (7-20) Creatinine 1.0 mg/dL (0.6-1.0) Estimated GFR (Cockcroft-Gault) 58.7 BUN/Creatinine Ratio 13 (6-20) Glucose Level 99 mg/dL (70-99) Calcium Level 8.3 mg/dL (8.5-10.1) L Total Bilirubin 0.2 mg/dL (0.2-1.0) Aspartate Amino Transferase (AST) 17 U/L (15-37) Alanine Aminotransferase (ALT) 23 U/L (14-59) Alkaline Phosphatase 115 U/L (46-116) Troponin I Quantitative < 0.017 ng/mL (0-0.055) Total Protein 6.9 g/dL (6.4-8.2) Albumin 3.0 g/dL (3.4-5.0) L Albumin/Globulin Ratio 0.8 (1.0-1.7) L EKG EKG EKG with a rate of 84, QRS of 84, QTc of 443, no STEMI [] Radiology/Procedures Radiology/Procedures [] Exam: Left lower extremity venous duplex study INDICATION: Leg swelling TECHNIQUE: Using a combination of real-time ultrasound imaging and color-flow and pulse Doppler imaging techniques along with graded compression and augmentation, duplex evaluation of the deep venous systems of leftlower extremity was performed. Multiple images were obtained. Findings: There is no sonographic evidence for deep venous thrombosis involving the visualized deep venous structures of the left lower extremity. IMPRESSION: No acute DVT in the left lower extremities. Electronically signed by: Jones Benavides MD (08/06/2020 9:17 PM) [facility] Heart Score C/O Chest Pain: No Risk Factors: Risk Factors: DM, Current or recent (<one month) smoker, HTN, HLP, family history of CAD, obesity. Risk Scores: Risk Factors: DM, Current or recent (<one month) smoker, HTN, HLP, family history of CAD, obesity. Course & Med Decision Making Course & Med Decision Making Patient is a 49-year-old female who presents with left lower extremity swelling and tenderness for 2 days Vital signs not concerning. Physical exam noted above. No need for pain or nausea medication at this time. D-dimer elevated. EKG noted above and normal. Troponin normal. Laboratory analysis otherwise unremarkable. Ultrasound with no signs of DVT. Discussed all findings with patient and advised to follow-up tomorrow with primary care physician. Gave return precautions to the ED. Patient grateful, verbalized understanding agree with plan of discharge. Dragon Disclaimer Dragon Disclaimer This electronic medical record was generated, in whole or in part, using a voice recognition dictation system. Departure Departure: Impression: Primary Impression: Swelling of lower extremity Disposition: HOME / SELF CARE / HOMELESS Condition: GOOD Referrals: BRIANNE JAY (PCP) Patient Instructions: RICE - Routine Care for Injuries Additional Instructions: Thank you for coming in to the emergency department tonight and allowing us to take care of you. Please read all the attached information. Your laboratory analysis was not concerning. Your vital signs were also not concerning. The ultrasound of your lower extremity showed no blood clot. Please follow-up in the morning with your primary care physician and set up a follow-up visit as soon as you can. Please come back to the emergency department immediately with new or concerning symptoms as discussed. KAREN LA MD Aug 06, 2020 20:50
--- NOTE | 2020-08-06 21:20 | RAD ---
Exam: Left lower extremity venous duplex study INDICATION: Leg swelling TECHNIQUE: Using a combination of real-time ultrasound imaging and color-flow and pulse Doppler imagi ng techniques along with graded compression and augmentation, duplex evaluation of the deep venous sy stems of leftlower extremity was performed. Multiple images were obtained. Findings: There is no sonographic evidence for deep venous thrombosis involving the visualized deep venous stru ctures of the left lower extremity. IMPRESSION: No acute DVT in the left lower extremities. Electronically signed by: Jones Benavides MD (08/06/2020 9:17 PM) [email or web address]
[2020-08-06] MEDS ORDERED: HYDROcodone/APAP 5/325MG 1 TAB TABLET PO ONE (22:15)
[2020-08-06] MEDS ORDERED: HYDR-2155 PO (22:15)
[2020-08-06 22:42] VITALS: BP 167/93
== END 2020-08-06 22:42 | disposition home or self-care (01) ==
LOC: ER 18:23
DX: R22.42 Localized swelling, mass and lump, left lower limb (principal); M25.572 Pain in left ankle and joints of left foot; M79.662 Pain in left lower leg; F41.9 Anxiety disorder, unspecified; J44.9 Chronic obstructive pulmonary disease, unspecified; F32.9 Major depressive disorder, single episode, unspecified; K21.9 Gastro-esophageal reflux disease without esophagitis; E78.00 Pure hypercholesterolemia, unspecified; I10 Essential (primary) hypertension; F17.210 Nicotine dependence, cigarettes, uncomplicated; Z88.0 Allergy status to penicillin; Z88.1 Allergy status to other antibiotic agents
CPT/HCPCS: 36415; 80053; 81001; 84484; 85025; 85379; 87086; 93005; 93971; 99285

== ENCOUNTER 2021-01-04 03:35 | Emergency (ER) | payer SELFPAY ==
[~2021-01-04] VITALS: Ht 170.2 cm; Wt 78.6 kg
[~2021-01-04 03:35] MED LIST changes: +HYDR-2155 PO
[2021-01-04 03:46] VITALS: BP 163/83
[2021-01-04] MEDS ORDERED: NEOM10DR32 AD (04:06)
--- NOTE | 2021-01-04 04:12 | PHYS DOC ---
Past History Past Medical History: Anxiety, Asthma, Cancer, Constipation, COPD, Depression, GERD, High Cholesterol, Hypertension, Other Additional Past Medical Histor: brain tumor Past Surgical History: Smoking: Cigarettes Alcohol Use: None Drug Use: Marijuana, Methamphetamine Adult General Chief Complaint Chief Complaint: MULTIPLE COMPLAINTS HPI HPI Patient is a 50-year-old female presenting for ear pain. Reports she has been suffering from URI symptoms for past 72 hours without any known inciting event, trauma, ingestion, major change in health, known sick contact or recent travel. She has not taken anything in attempt to alleviate her symptoms. Nothing known makes better or worse. States she was bending over earlier this evening when she felt a pop in her right ear, there is no trauma, she did not hit her head. States she has noticed some mucopurulent drainage coming from right ear canal with extreme pain with manipulation of right ear. She has not had any fever, no headache, fever, chest pain, ripping or tearing in torso, shortness of breath, productive cough, abdominal pain, urinary symptoms or other concerning signs. She does admit she is not vaccinated against COVID-19 Review of Systems Review of Systems Fourteen body systems of review of systems have been reviewed. See HPI for pertinent positives and negative responses, other dillon all other systems are negative, non-pertinent or non-contributory Allergies Allergies Allergies Coded Allergies Type Severity Reaction Last Updated Verified Penicillins Allergy Severe breathing 08/06/20 Yes ampicillin Allergy Intermediate 08/06/20 Yes ciprofloxacin Allergy Intermediate gi 08/06/20 Yes lisinopril Allergy Intermediate 08/06/20 Yes metronidazole Allergy Intermediate breathing 08/06/20 Yes Physical Exam Physical Exam General: Appears well, hysterical, crying and anxious on exam but nontoxic in appearance Skin: Warm, dry. Normal for ethnicity. HEENT: Atraumatic. PERRLA. Pain with manipulation of bright external ear, ear canal on right with significant mucopurulent colored drainage with wall erythema and injection, significant exudate in right ear made tympanic membrane not fully visible but appeared intact, rhinorrhea and congestion. Nasal turbinates boggy b/l. Moist mucous membranes with postnasal drip present. Uvula midline. Maintaining secretions. No phonation changes. Neck: Trachea midline. Normal ROM. No stridor. Respiratory: Normal WOB. CTAB w/o w/r/r. No tachypnea. Cardiovascular: Regular rate and rhythm. Normal peripheral perfusion. Abdomen: Soft. Non tender. No distension. Back: Normal ROM. Musculoskeletal: No swelling or deformity. Neuro: Alert and oriented x 4. MAEE. Lymph: No cervical LAD. Psych: Tearful affect, anxious mood Current Patient Data Vital Signs Vital Signs Date Time Temp Pulse Resp B/P (MAP) Pulse Ox O2 Delivery O2 Flow Rate FiO2 01/04/21 03:46 98.7 101 18 163/83 (109) 94 Room Air EKG EKG [] Radiology/Procedures Radiology/Procedures [] Heart Score C/O Chest Pain: No Risk Factors: Risk Factors: DM, Current or recent (<one month) smoker, HTN, HLP, family history of CAD, obesity. Risk Scores: Risk Factors: DM, Current or recent (<one month) smoker, HTN, HLP, family history of CAD, obesity. Course & Med Decision Making Course & Med Decision Making ABCs unremarkable HPI physical exam and comprehensive ER work-up nonconcerning for any emergent or surgical issues Patient suffering from URI symptoms for the last 72 hours and likely viral/self- limiting in etiology. She is unvaccinated, COVID-19 PCR pending with appropriate self quarantine instructions advised Patient's right ear also consistent with outer ear infection. Given unclear status of tympanic membrane, Corticosporin suspension advised with close PCP and potential ENT follow-up. NSAIDs and/or Tylenol recommended Strict instructions to contact PCP in the morning to review ER visit today and need for close outpatient follow-up at the beginning of next week with consideration for ENT consultation. Of course, all of this when safe to do so pending negative Covid test Strict return precautions were discussed with understanding verbalized by patient, all questions and concerns addressed prior to ER departure Dragon Disclaimer Dragon Disclaimer This electronic medical record was generated, in whole or in part, using a voice recognition dictation system. Departure Departure: Impression: Primary Impression: Right otitis externa Additional Impressions: Person under investigation for COVID-19 Viral syndrome Disposition: HOME / SELF CARE / HOMELESS Condition: STABLE Referrals: BRIANNE JAY (PCP) Patient Instructions: Otitis Externa, Viral Syndrome Additional Instructions: You were seen for earache, generalized pain, runny nose and possible infection with COVID-19. Your physical exam was reassuring but there was concern for right otitis externa or outer ear infection so antibiotic drops were prescribed. Please take these as prescribed to completion with recommendation for close outpatient PCP and potential ENT follow-up. In addition, we tested you for COVID-19 but this test does not come back for 1 to 2 days. In the meantime you need to quarantine yourself at home away from all other individuals, especially those who are elderly or have any other chronic health issues or an immunocompromised status. You should return to the ED if you develop worsening cough, shortness of breath, chest pain, or any other new or concerning symptoms. Alternate Tylenol and ibuprofen as needed for body aches and pain. If your test does come back positive you need to quarantine yourself for 10 days until symptom-free. You should make sure to drink plenty of fluids and get plenty of rest. Scripts Neomycin/Polymyxin B Sulf/Hc ([id number] EAR SUSP) 10 Ml Drops.susp 4 DROP AD TID for otitis externa for 5 Days, #10 ML 0 Refills Prov: TIMI PHILLIPS DO 01/04/21 Problem Qualifiers TIMI PHILLIPS DO Jan 04, 2021 04:12
[2021-01-04] MEDS ORDERED: IBUPROFEN 600 MG TABLET. PO ONE (04:15)
[2021-01-04] MEDS ORDERED: NEOMYCIN/POLYMYXIN/HC OTIC SUSPENSION 10ML BOTTLE. AD ONE (04:15)
[2021-01-04] MEDS ORDERED: ACETAMINOPHEN 325 MG TABLET PO ONE (04:15)
== END 2021-01-04 04:30 | disposition home or self-care (01) ==
LOC: ER 03:35
DX: H60.91 Unspecified otitis externa, right ear (principal); B34.9 Viral infection, unspecified; F41.9 Anxiety disorder, unspecified; J44.9 Chronic obstructive pulmonary disease, unspecified; K21.9 Gastro-esophageal reflux disease without esophagitis; E78.00 Pure hypercholesterolemia, unspecified; I10 Essential (primary) hypertension; F17.210 Nicotine dependence, cigarettes, uncomplicated; Z20.822 Contact with and (suspected) exposure to COVID-19; Z88.0 Allergy status to penicillin; Z88.1 Allergy status to other antibiotic agents; Z88.8 Allergy status to other drugs, medicaments and biological substances
CPT/HCPCS: 99284; C9803; U0003